=== PATIENT | male | born 1975 | race Caucasian/White ===

== ENCOUNTER 2019-10-12 10:30 | Outpatient (RCR) | payer OTHER, SELFPAY ==
--- NOTE | 2019-10-05 09:28 | PCPTNOTE ---
pt no show no call for today's appointment. Called pt woke him up. stated he forgot. Reminded Yung of his next appointment on the at 9am.
--- NOTE | 2019-10-16 12:42 | PCPTNOTE ---
Patient cancelled due to illness.
--- NOTE | 2019-10-19 09:07 | PCPTNOTE ---
pt no show no call for todays apt.
--- NOTE | 2019-10-19 09:10 | PCPTNOTE ---
called pt and left a voicemail message reminder of next weeks appt. Pt no showed for appointment today.
--- NOTE | 2019-10-24 09:43 | PCPTNOTE ---
Patient did not show up for scheduled appointment this date. Called pt left message reminder for next appointment.
--- NOTE | 2019-10-26 09:12 | PCPTNOTE ---
Patient did not show up for scheduled appointment this date. Called and left message regarding missed appointment and no show policy. Will Dc skilled therapy.
--- NOTE | 2019-10-26 09:14 | PCPTNOTE ---
Admitting Provider: Attending Provider: Kierra Rg, RN CAMP-BC Patient:Yung Verma Date of :1975 Discharge Note Patient has not returned for any further treatments since 10/12/2019, therefore he will be discharged at this time. Patient?s initial visit was on 10/02/2019 14:00 and he had a total of 3 visits. He cancelled or was a no show for 5 therapy visits. The goals have not been met. Thank you for referring this patient to [facility]. Please review, sign, date and return this discharge summary BRITTANY. I have been updated about the patient's current status and I agree with discharge from the above service at this time. Referring Physician Date
== END 2019-10-26 10:52 | disposition home or self-care (01) ==
LOC: ANHPT 10:30
PROVIDERS: PCP Internal Medicine; Visit Provider Nurse Practitioner Family
DX: M54.16 Radiculopathy, lumbar region (principal)
CPT/HCPCS: 97014; 97110; 97161; G0283

== ENCOUNTER 2022-07-03 12:47 | Emergency (ER) | payer OTHER, SELFPAY ==
--- NOTE | ~2022-07-03 | XR_ITS ---
EXAMINATION: XR ankle LT min 3V DATE: 07/03/2022 13:05 INDICATION: Left ankle pain, bruising and swelling post injury TECHNIQUE: Anteroposterior, oblique, mortise, and lateral views of the left ankle were obtained. COMPARISON: None. FINDINGS: Bone alignment is normal. No fracture. Joint spaces are normal. Diffuse soft tissue swelling about th e left ankle, both medially and laterally. IMPRESSION: 1. No osseous abnormality. Reviewed, dictated and finalized at location A. IMPRESSION: 1. No osseous abnormality.
--- NOTE | ~2022-07-03 | US_ITS ---
EXAMINATION:US venous doppler LE LT INDICATION:Left calf and ankle swelling and redness. TECHNIQUE: Multiple grayscale, color flow and Doppler images of the left lower extremity deep venous systems were obtained and reviewed. COMPARISON:No prior studies for comparison. FINDINGS: The common femoral, superficial femoral and popliteal veins demonstrate normal respiratory variation, augmentation and compressibility. Color flow is also seen within the posterior tibial, pe roneal, greater saphenous and profunda veins. IMPRESSION: 1: No lower extremity deep venous thrombosis. Reviewed, dictated and finalized at location B.
[2022-07-03 12:49] VITALS: BP 143/96; PULSE 65; RESP 17; TEMP 37; O2SAT 99
[2022-07-03] MEDS: IBUPROFEN 400 MG TABLET 800 MG PO (13:22)
[2022-07-03] MEDS: HYDROcodone/acetaminophen (*CRX) 5-325 MG TABLET 1 TAB PO (13:22)
--- NOTE | 2022-07-03 13:27 | ED.GENADULT ---
HPI - General Adult General Chief complaint: Extremity Injury, Lower Stated complaint: left leg pain Time Seen by Provider: 07/03/22 13:04 Source: patient Mode of arrival: ambulatory Limitations: no limitations History of Present Illness HPI narrative: This is a 46-year-old male who presents to the ED with chief complaint of left ankle injury occurring 4 days ago. Patient reports pain and swelling all around the left ankle. Patient also reports bruising. Patient states that he was pushing his car and felt a pop in the ankle when planting his foot. Endorses left calf swelling. Denies numbness or weakness. Denies fevers, chills, redness, wounds. Related Data Allergies Allergy/AdvReac Type Severity Reaction Status Date / Time No Known Allergies Allergy Unverified 08/23/19 14:37 Review of Systems Review of Systems: CONSTITUTIONAL: Denies fever, chills, or sweats. SKIN: See HPI MUSCULOSKELETAL: See HPI NEUROLOGIC: Denies headache, numbness, dizziness, or weakness. PSYCHIATRIC: Denies anxiety or depression. [facility] Past Medical History Medical History (Updated 07/03/22 @ 14:55 by Trev Chavez PA-C) Anxiety Back pain Headache Vision loss Surgical History Surgical History (Updated 08/23/19 @ 14:39 by Ingrid Dubose CMA) Previous back surgery 2006 Social History Social History (Updated 11/27/19 @ 13:37 by Ingrid Dubose [facility]) Smoking packs per day: 0.25 Smoking cigarettes per day: 5.0 Smoking status: Current every day smoker Alcohol intake: never Exam Narrative: GENERAL: Well-appearing, well-nourished, and in no acute distress. EXTREMITIES: Left lower extremity: Significant bruising throughout the left ankle and posterior left foot. Significant swelling present in the left ankle. Moderate tenderness to the medial and lateral ankle. Left calf is slightly larger than right calf. Left calf is warm. Ryder test negative. DP and PT pulses are intact. Right lower extremity: Benign. SKIN: Warm, dry, no rash. No erythema to bilateral calves. Significant ecchymosis on the left. NEURO: Alert and oriented x3. No focal deficits. PSYCH: Normal mood and affect. Course Vital Signs Vital signs: Vital Signs Temperature 98.6 F 07/03/22 12:49 Pulse Rate 65 07/03/22 12:49 Respiratory Rate 17 05/12/23 12:49 Blood Pressure 143/96 H 07/03/22 12:49 Pulse Oximetry 99 07/03/22 12:49 Oxygen Delivery Room Air 07/03/22 12:49 Temperature 98.6 F 07/03/22 12:49 Pulse Rate 87 07/03/22 15:15 Respiratory Rate 19 07/03/22 15:15 Blood Pressure 147/88 H 07/03/22 14:19 Pulse Oximetry 97 07/03/22 15:15 Oxygen Delivery Room Air 07/03/22 12:49 Medical Decision Making MDM Narrative Medical decision making narrative: This is a 46-year-old male who presents to the ED with chief complaint of left leg pain. Patient states he had an injury 4 days ago but has not been able to be seen till now. He is homeless. Vitals are stable. Exam shows significant swelling and bruising to the left ankle. X-ray of the left ankle is negative. Ultrasound left lower extremity was ordered due to unilateral swelling of the calf, and this is negative as well. His symptoms are consistent with an ankle sprain. His Achilles is intact. Patient will be given Yamil wrap and compression instructions. Supportive measures discussed. Return precautions given. Patient is understanding and agreeable to plan for discharge. Vital Signs Vital Signs: Vital Signs Temperature 98.6 F 07/03/22 12:49 Pulse Rate 65 07/03/22 12:49 Respiratory Rate 17 07/03/22 12:49 Blood Pressure 143/96 H 07/03/22 12:49 Pulse Oximetry 99 07/03/22 12:49 Oxygen Delivery Room Air 07/03/22 12:49 Temperature 98.6 F 07/03/22 12:49 Pulse Rate 87 07/03/22 15:15 Respiratory Rate 19 07/03/22 15:15 Blood Pressure 147/88 H 07/03/22 14:19 Pulse Oximetry 97 07/03/22 15:15 Oxygen Delivery
[2022-07-03 14:19] VITALS: BP 147/88; PULSE 66; RESP 18; O2SAT 98
--- NOTE | 2022-07-03 15:01 | PC.NURSE ---
patient requesting information in regards to mental health. denies SI/HI
[2022-07-03 15:15] VITALS: PULSE 87; RESP 19; O2SAT 97
== END 2022-07-03 15:16 | disposition home or self-care (01) ==
PROVIDERS: Emergency Provider Physician Assistant; PCP Internal Medicine
DX: S93.402A Sprain of unspecified ligament of left ankle, initial encounter (principal); S96.912A Strain of unspecified muscle and tendon at ankle and foot level, left foot, initial encounter; F17.210 Nicotine dependence, cigarettes, uncomplicated; X50.9XXA Other and unspecified overexertion or strenuous movements or postures, initial encounter
CPT/HCPCS: 73610; 93971; 99283; 99284; A9270